=== PATIENT | male | born 1945 | race Caucasian/White ===

== ENCOUNTER 2019-09-15 16:45 | Inpatient (IN) | payer MEDICARE, BC ==
[~2019-09-15] VITALS: Ht 180.3 cm; Wt 90.2 kg
[2019-09-15] MEDS ORDERED: ASPIRIN 81 LOW81 MG PO (16:59)
[2019-09-15] MEDS ORDERED: ALLOPURINOL300 MG PO (17:00)
[2019-09-15] MEDS ORDERED: BENAZEPRIL10 M1 PO (17:01)
[2019-09-15] MEDS ORDERED: LIPITOR40 M1 PO (17:01)
[2019-09-15] MEDS ORDERED: VITAMIN D31000 UNI1 PO (17:02)
[2019-09-15] MEDS ORDERED: METFORMIN500 M2 PO (17:02)
[2019-09-15] MEDS ORDERED: OMEPRAZOLE DR20 MG PO (17:02)
[2019-09-15] MEDS ORDERED: B-125000 MCG PO (17:03)
[2019-09-15] MEDS ORDERED: [UNRECOGNIZED DRUG - OTHER] PO (17:04)
[2019-09-15] MEDS ORDERED: FISH OIL1 CAP PO (17:05)
[2019-09-15 17:49] LABS: HEMATOCRIT 45.4 % (39.0-50.0); HEMOGLOBIN 14.8 g/dl (14.0-18.0); IMMATURE GRANULOCYTES 0.2 % (0.0-5.0); MEAN CORPUSCULAR HGB 30.6 pG CALC (26.0-32.0); MEAN CORPUSCULAR HGB CONC 32.6 g/L CALC (32.0-36.0); NEUT# 4.89 thou/uL (1.82-7.42); RED BLOOD COUNT 4.83 mill/uL (4.70-6.10); RED CELL DISTRI WIDTH 14.2 % (11.5-15.5)
[2019-09-15 17:58] LABS: ALBUMIN 4.5 g/dL (3.2-5.0); ALKALINE PHOSPHATASE 65 u/l (38-126); BILIRUBIN, TOTAL 0.5 mg/dL (0.0-1.4); BUN 12 mg/dL (8-23); BUN/CREATININE RATIO 14 (12-20 (CALC)); CARBON DIOXIDE 28 mmol/l (22-30); CHLORIDE 102 mmol/l (95-108); CREATININE 0.9 mg/dL (0.7-1.3); GFR > 60 ML/MIN (>=60 (CALC)); GFR FOR AFR.AMER. > 60 ML/MIN (>=60 (CALC)); SGOT/AST 33 u/l (19-48); SODIUM 142 mmol/l (137-146); TOTAL PROTEIN 7.9 g/dL (6.3-8.2)
[2019-09-15 18:08] LABS: ANION GAP 16 (6-22 (CALC)); POTASSIUM 3.7 mmol/l (3.5-5.1)
[2019-09-15 18:10] LABS: MYOGLOBIN 57 ng/mL (0 - 121)
[2019-09-15 19:48] VITALS: BP 131/79
[2019-09-16] VITALS (7 sets, daily range): BP systolic 95–159; BP diastolic 46–91
[2019-09-16 09:44] LABS: MAGNESIUM 1.9 mg/dL (1.6-2.3)
[2019-09-16 11:41] LABS: CHOLESTEROL HDL RATIO 3.8 (<4.4 (CALC))
[2019-09-17 04:31] VITALS: BP 132/81
[2019-09-17 08:05] VITALS: BP 153/88
[2019-09-17 09:17] VITALS: BP 153/88
== END 2019-09-17 10:20 | disposition home or self-care (01) | DRG 313 ==
LOC: ED 16:45 → ED-I 17:00 → ED 17:00 → ED-I 18:08 → ED 18:25 → MS2 18:26
PROVIDERS: Family Medicine; Nurse Practitioner Family; ADMIT Internal Medicine; ATTEND Internal Medicine
DX: R07.2 Precordial pain (principal); I16.0 Hypertensive urgency; I10 Essential (primary) hypertension; E11.9 Type 2 diabetes mellitus without complications; M10.9 Gout, unspecified; K21.9 Gastro-esophageal reflux disease without esophagitis; I45.10 Unspecified right bundle-branch block; E78.5 Hyperlipidemia, unspecified; Z87.891 Personal history of nicotine dependence; Z79.84 Long term (current) use of oral hypoglycemic drugs
CPT/HCPCS: G0378

== ENCOUNTER 2023-07-11 17:42 | Emergency (ER) | payer MEDICARE, BC ==
[~2023-07-11] VITALS: Ht 180.3 cm; Wt 90.7 kg
[~2023-07-11 17:42] MED LIST: ALLOPURINOL300 MG PO; ASPIRIN 81 LOW81 MG PO; B-125000 MCG PO; BENAZEPRIL10 M1 PO; FISH OIL1 CAP PO; ISOSORBIDE DINI30 MG PO; LIPITOR40 M1 PO; METFORMIN500 M2 PO; NORVASC5 M1 PO; OMEPRAZOLE DR20 MG PO; VITAMIN D31000 UNI1 PO; [UNRECOGNIZED DRUG - OTHER] PO
[2023-07-11 18:21] VITALS: BP 139/93
[2023-07-11 18:30] VITALS: BP 120/85
[2023-07-11] MEDS ORDERED: KEFLEX500 MG PO (20:08)
[2023-07-11 20:12] VITALS: BP 142/92
[2023-07-11 20:16] VITALS: BP 142/92
== END 2023-07-11 20:20 | disposition home or self-care (01) ==
LOC: ED 17:42
PROC: 0HQFXZZ Repair Right Hand Skin, External Approach (ICD-10-PCS; principal; 2023-07-11)
DX: S61.210A Laceration without foreign body of right index finger without damage to nail, initial encounter (principal); I10 Essential (primary) hypertension; R73.03 Prediabetes; M10.00 Idiopathic gout, unspecified site; I38 Endocarditis, valve unspecified; W26.8XXA Contact with other sharp object(s), not elsewhere classified, initial encounter; Y92.009 Unspecified place in unspecified non-institutional (private) residence as the place of occurrence of the external cause; Z79.84 Long term (current) use of oral hypoglycemic drugs